=== PATIENT | female | born 1985 | race African-American/Black ===

== ENCOUNTER 2020-11-12 15:29 | Emergency (ER) | payer MEDICAID, OTHER ==
[~2020-11-12] VITALS: Ht 162.6 cm; Wt 100.0 kg
[2020-11-12 15:50] VITALS: BP 136/65
[2020-11-12] MEDS ORDERED: IBUP-2029 MT (17:44)
[2020-11-12] MEDS ORDERED: CEPH500C2 MT (17:44)
== END 2020-11-12 20:30 | disposition home or self-care (01) ==
LOC: ER 15:29
DX: N61.1 Abscess of the breast and nipple (principal); E11.9 Type 2 diabetes mellitus without complications
CPT/HCPCS: 76641; 82962; 99284

== ENCOUNTER 2020-12-07 10:45 | Emergency (ER) | payer MEDICAID, OTHER ==
[~2020-12-07] VITALS: Ht 162.6 cm; Wt 100.0 kg
[~2020-12-07 10:45] MED LIST: CEPH500C2 MT; IBUP-2029 MT
[2020-12-07 11:04] VITALS: BP 130/80
[2020-12-07] MEDS ORDERED: CEPH500C2 MT (12:21)
== END 2020-12-07 13:08 | disposition home or self-care (01) ==
LOC: ER 10:45
DX: N61.1 Abscess of the breast and nipple (principal); E11.9 Type 2 diabetes mellitus without complications; Z79.84 Long term (current) use of oral hypoglycemic drugs; Z98.890 Other specified postprocedural states
CPT/HCPCS: 99281